=== PATIENT | male | born 1945 | race Caucasian/White ===

== ENCOUNTER 2022-05-07 15:55 | Outpatient (CLI) | payer MEDICARE, SELFPAY ==
[2022-05-10 14:48] LABS: PSA, Ultrasensitive 11.9 ng/mL (<= 6.5)
== END 2022-05-07 15:56 | disposition home or self-care (01) ==
LOC: LBO 16:15
PROVIDERS: PCP Family Medicine; Visit Provider Student in an Organized Health Care Education/Training Program
DX: C61 Malignant neoplasm of prostate (principal)
CPT/HCPCS: 36415; 84153

== ENCOUNTER 2022-08-25 12:40 | Emergency (ER) | payer MEDICARE, SELFPAY ==
[2022-08-25] VITALS (24 sets, daily range): BP systolic 138–174; BP diastolic 72–92; PULSE 57–70; RESP 6–19; TEMP 36.8; O2SAT 25–100
--- NOTE | 2022-08-25 12:30 | RT.EKG_ITS ---
APPROVED REPORT Exam: Resting ECG Reason for Exam: dizzy Patient Location: E HR:58 bpm ECG Measurements Heart Rate 58 AXIS MO 225 P 74 QRSd 98 QRS -39 QT 423 T 58 QTc 414 Conclusion Sinus bradycardia...rate< 60 Prolonged MO interval...MO >220, V-rate 50- 90 Left axis deviation...QRS axis (-30,-90). Sinus. No STEMI. I have reviewed and interpreted ECG and agree with software generated interpretation.
--- NOTE | 2022-08-25 13:23 | DI.RAD_ITS ---
Exam(s) XR PORTABLE CHEST AP EXAM: XR PORTABLE CHEST APz CLINICAL HISTORY: presyncop TECHNIQUE: 2D digital imaging was performed. COMPARISON: No exams were available for comparison FINDINGS: Leads overlie the chest LUNGS: Clear. No pleural abnormality seen. HEART: Normal size. AORTA: Normal diameter. BONES: Unremarkable for age. Soft tissues: Unremarkable. IMPRESSION: No acute findings. DATA REPOSITORY: RADIATION DOSE DELIVERED:
--- NOTE | 2022-08-25 13:26 | W.ED.GENAD ---
Discharge Plan Disposition Patient Disposition: Home Condition: Stable Discharge Details Clinical Impression: Pre-syncope Primary Care Provider: Gia Mayes ED Provider: Anna Mendiola Home Meds and New Rx's Prescriptions: Continued omeprazole 20 mg Capsule,Delayed Release(Dr/Ec) 20 mg PO 1XD losartan 100 mg Tablet 100 mg PO 1XD magnesium Tablet 500 tab PO 1XD allopurinol 200 mg Tablet 200 mg PO 1XD Discharge Instructions Instructions: Near Syncope (ED) Additional Instructions: Please follow-up with your primary care physician I suspect you had a vasovagal episode, please continue to rest for the remainder of today and do not exert yourself Keep yourself hydrated Regular meals and fluids Return earlier should he have new or worsening complaints My recommendation is to be reassessed by your doctor tomorrow Referrals: Gia Mayes [Primary Care Provider] - Discharge Data Discharge Date/Time-TO BE ENTERED AT DEPARTURE: 08/25/22 15:58 Medical Decision Making This 77-year-old gentleman with history of recent diagnosis of prostate cancer with goal installation into prostate today in the office and 1 mg Ativan consumption presents with report of presyncopal symptoms with hypotension and bradycardia just prior to arrival, this was approximately an hour after the procedure Feeling marked improvement at this time after fluids and rest/substance Diagnostic labs including troponin, EKG, telemetry monitoring all are within normal limits Patient has negative orthostatics and is ambulatory with steady gait with a nonfocal neurological exam At this time, I suspect his symptoms are vasovagal related, he has been observed for approximately 3 hours in the emergency department and would like to be discharged home I think he stable to do so and his feels comfortable with him being discharged at this time, they will continue to monitor throughout the evening and return earlier should he have new or worsening complaints He is discharged home in stable condition with stable vitals Recheck with primary care physician tomorrow recommended Medical Records Medical records reviewed: Yes I reviewed the patient's medical records. Lab Data Lab results reviewed: Yes I reviewed the patient's lab results. HPI General Date/Time Provider Initiated Documentation: 08/25/22 12:44. HPI Narrative: This 77-year-old male presents with report of failed instillation into his prostate for history of prostate cancer today. He took 1 mg of Ativan approximately an hour prior to the procedure. He states that he was wheeling himself to the bathroom postprocedure and began to feel like he might pass out, very nauseous, and tingly all over. He denies any fever or chills. He denies any chest pain or shortness of breath. States he ate breakfast this morning but has not consumed lunch. He denies any weakness that is localized. He denies any falls or head injuries. [place] fine until the procedure occurred. He denies any additional complaints at this time. Related Data Home Medications Medication Instructions Recorded Confirmed allopurinol 200 mg tablet 200 mg PO 1XD 08/25/22 08/25/22 losartan 100 mg tablet 100 mg PO 1XD 08/25/22 08/25/22 magnesium 500 tab PO 1XD 08/25/22 08/25/22 omeprazole 20 mg capsule,delayed 20 mg PO 1XD 08/25/22 08/25/22 release Allergies Allergy/AdvReac Type Severity Reaction Status Date / Time No Known Allergies Allergy Unverified 08/25/22 13:42 General Stated Complaint: Dizzy/Sync MELISSA: 2 PFSH All Active Problems (Updated 08/25/22 @ 14:46 by ANNIKA Teixeira) Pre-syncope (Acute) Social History Smoking/Tobacco Use Status: Never Smoking risk assessment performed?: Yes Drug use: Rarely Substance use type: marijuana Do you feel safe at home: Yes Do you feel safe in your relationship?: Yes Exam Const General: cooperative, no acute distress and well developed Eyes Pupils: PERRL Resp Effort & Inspection: normal respiratory effort Auscultation: clear to auscultation bilaterally Cardio Rate: regular rate Rhythm: regular rhythm Heart Sounds: no murmurs GI Inspection: normal to inspection Skin General skin exam: no rashes or lesions noted Neuro General: patient alert and patient oriented x3 Cranial Nerves: CN's II-XI intact bilaterally and tongue midline Cognition: normal cognition Speech: speech normal Gait: normal gait Sensory Exam: no sensory deficits noted Other: Negative pronator drift, negative [id number], negative heel fox, ambulatory with steady gait Extrem Other: no calf swelling or tenderness Distal pulses intact Course Vital Signs Vital signs: Vital Signs Temperature 36.8 C 08/25/22 12:39 Pulse 62 08/25/22 12:39 Respiratory Rate 18 08/25/22 12:39 Blood Pressure 163/72 H 08/25/22 12:39 Temperature 36.8 C 08/25/22 12:39 Pulse 62 08/25/22 12:39 Respiratory Rate 18 08/25/22 12:39 Blood Pressure 163/72 H 08/25/22 12:39 Pulse Oximetry 100 08/25/22 12:50 Oxygen Delivery Method Room Air 08/25/22 12:50 Oxygen Flow Rate 0 08/25/22 12:50
[2022-08-25] MEDS: Lactated Ringers 1,000 ML 1000 ML IV (13:34)
[2022-08-25 13:37] LABS: Abs Immature Grans 0.05 10^3/uL (0.0-0.06); Absolute Basophil Count 0.05 10^3/uL (0.0-0.2); Absolute Eosinophil Count 0.21 10^3/uL (0.0-0.7); Absolute Lymphocyte Count 1.53 10^3/uL (1.2-3.4); Absolute Monocyte Count 0.87 10^3/uL (0.1-0.8); Absolute Neutrophil Count 3.47 10^3/uL (1.2-6.7); Basophils % 0.8; Eosinophils % 3.4; HCT 39.1 % (40.0-50.0); HGB 12.6 g/dL (13.5-17.5); Immature Grans % 0.8; Lymphocytes % 24.8; MCH 30.3 pg (27.0-33.0); MCHC 32.2 % (32.0-36.0); MCV 94 fL (80-95); MPV 9.9 fL (8.0-11.0); Monocytes % 14.1; Neutrophils % 56.1; Platelet Count 167 10^3/uL (130-400); RBC 4.16 10^6/uL (4.36-5.78); RDW 13.1 % (11.8-14.1); RDW-SD 45.2 fL; WBC 6.18 10^3/uL (4.4-10.8)
[2022-08-25 13:55] LABS: ALT 47 U/L (16-63); AST 41 U/L (15-37); Albumin 3.5 g/dL (3.4-5.0); Alkaline Phosphatase 91 U/L (46-116); Anion Gap 6.2 mmol/L (3-11); BUN 19 mg/dL (7-18); Bilirubin, Total 0.9 mg/dL (0.2-1.0); CO2 28.8 mmol/L (21.0-32.0); CREATININE 1.1 mg/dL (0.70-1.30); Calcium 9.2 mg/dL (8.5-10.1); Chloride 106 mmol/L (98-107); Estimated GFR 70.01 (mL/min/1.73m2); Glucose 101 mg/dL (74-106); Magnesium 1.9 mg/dL (1.8-2.4); Potassium 4.2 mmol/L (3.5-5.1); Sodium 141 mmol/L (136-145); Troponin I < 50 ng/L (<or=60)
== END 2022-08-25 15:58 | disposition home or self-care (01) ==
PROVIDERS: Emergency Provider Physician Assistant; PCP Family Medicine
DX: R55 Syncope and collapse (principal); I95.9 Hypotension, unspecified; R00.1 Bradycardia, unspecified
CPT/HCPCS: 80053; 93005; 96360; 99284; 71045; 83735; 84484; 85025; 93010; 99285

== ENCOUNTER 2022-11-11 16:21 | Outpatient (CLI) | payer MEDICARE, SELFPAY ==
[2022-11-11 14:38] LABS: Abs Immature Grans 0.04 10^3/uL (0.0-0.06); Absolute Basophil Count 0.07 10^3/uL (0.0-0.2); Absolute Eosinophil Count 0.25 10^3/uL (0.0-0.7); Absolute Lymphocyte Count 2.49 10^3/uL (1.2-3.4); Absolute Monocyte Count 0.92 10^3/uL (0.1-0.8); Absolute Neutrophil Count 2.41 10^3/uL (1.2-6.7); Basophils % 1.1; HCT 38.7 % (40.0-50.0); HGB 12.6 g/dL (13.5-17.5); Immature Grans % 0.6; Lymphocytes % 40.3; MCH 30.4 pg (27.0-33.0); MCHC 32.6 % (32.0-36.0); MCV 94 fL (80-95); MPV 9.4 fL (8.0-11.0); Monocytes % 14.9; Neutrophils % 39.1; Platelet Count 217 10^3/uL (130-400); RBC 4.14 10^6/uL (4.36-5.78); RDW 12.7 % (11.8-14.1); RDW-SD 43.8 fL; WBC 6.18 10^3/uL (4.4-10.8)
[2022-11-11 15:26] LABS: ALT 46 U/L (16-63); AST 41 U/L (15-37); Albumin 3.7 g/dL (3.4-5.0); Alkaline Phosphatase 92 U/L (46-116); Anion Gap 5.8 mmol/L (3-11); BUN 18 mg/dL (7-18); Bilirubin, Total 0.5 mg/dL (0.2-1.0); CO2 30.2 mmol/L (21.0-32.0); CREATININE 1.1 mg/dL (0.70-1.30); Calcium 9.4 mg/dL (8.5-10.1); Chloride 106 mmol/L (98-107); Estimated GFR 70.01 (mL/min/1.73m2); Glucose 91 mg/dL (74-106); Potassium 4.3 mmol/L (3.5-5.1); Sodium 142 mmol/L (136-145); Total Protein 7.5 g/dL (6.4-8.2)
== END 2022-11-11 16:22 | disposition home or self-care (01) ==
LOC: LBO 16:22
PROVIDERS: PCP Family Medicine; Visit Provider Nurse Practitioner Family
DX: C61 Malignant neoplasm of prostate (principal)
CPT/HCPCS: 36415; 80053; 85025